=== PATIENT | female | born 1985 | race Asian ===

== ENCOUNTER 2024-04-26 07:10 | Outpatient (REF) | payer OTHER, SELFPAY ==
--- NOTE | ~2024-04-26 | US_ITS ---
EXAMINATION: US ABDOMEN COMPLETE CLINICAL INFORMATION: Epigastric and left upper quadrant abdominal pain. COMPARISON: None available. TECHNIQUE: Real-time imaging of the abdominal viscera. FINDINGS: PANCREAS: Normal. ABDOMINAL AORTA: The proximal, mid, and distal segments are normal in caliber. INFERIOR VENA CAVA: Visualized portions are normal. LIVER: Normal. The liver is normal in size. The liver contour is normal. Parenchymal echogenicity is normal. No focal hepatic lesion. There is no intrahepatic biliary duct dilatation seen. GALLBLADDER: Normal. The gallbladder is physiologically distended without evidence of stones, sludge, polyps, wall thickening or pericholecystic fluid. COMMON BILE DUCT: Normal in caliber measuring 0.3 cm in diameter. RIGHT KIDNEY: Normal. No hydronephrosis. No renal calculi or focal parenchymal lesions. The kidney measures 9.5 cm in maximum dimension. LEFT KIDNEY: Normal. No hydronephrosis. No renal calculi or focal parenchymal lesions. The kidney measures 10.8 cm in maximum dimension. SPLEEN: Normal. The spleen measures 10.0 cm in maximum dimension. FREE FLUID: None. US/US abdomen complete IMPRESSION: Normal ultrasound of the abdomen. Electronically signed by: Yves Dorsey MD 04/26/2024 07:06 PM [email or web address]
== END 2024-04-26 07:11 | disposition home or self-care (01) ==
LOC: HO.UMASIMG 07:10
PROVIDERS: Visit Provider Family Medicine
DX: R10.9 Unspecified abdominal pain (principal)
CPT/HCPCS: 76700

== ENCOUNTER 2024-06-09 08:40 | Outpatient (REF) | payer OTHER, SELFPAY ==
--- NOTE | ~2024-06-09 | US_ITS ---
EXAMINATION: US PELVIS HISTORY: IRREGULAR BLEEDING X 1 MONTH. TA ONLY PER PATIENT COMPARISON: There are no prior studies for comparison. TECHNIQUE: Transabdominal real-time 2D ho-scale ultrasound was performed. The patient declined endovaginal examination. FINDINGS: Uterus: The uterus is normal in size, measuring 8.0 x 3.8 x 5.3 cm. Myometrium has a normal echotexture. No fibroids are identified. Endometrium: The endometrial stripe measures 5 mm in thickness. Right ovary: The right ovary measures 1.6 x 1.5 x 1.4 cm. The right ovary is normal in size and echotexture. Left ovary: The left ovary measures 1.9 x 1.5 x 1.3 cm. The left ovary is normal in size and echotexture. Pelvic fluid: none. US/US pelvic complete IMPRESSION: Unremarkable pelvic ultrasound. Electronically signed by: Adolfo Real MD 06/09/2024 02:22 PM [email or web address]
== END 2024-06-09 08:41 | disposition home or self-care (01) ==
LOC: HO.UMASIMG 08:40
PROVIDERS: Visit Provider Nurse Practitioner Women's Health
DX: N92.6 Irregular menstruation, unspecified (principal)
CPT/HCPCS: 76856